=== PATIENT | male | born 1985 | race Caucasian/White ===

== ENCOUNTER 2019-02-08 14:52 | Emergency (ER) | payer SELFPAY ==
[~2019-02-08] VITALS: Ht 170.2 cm; Wt 89.0 kg
[2019-02-08 14:56] VITALS: Ht 170.2 cm; Wt 89.0 kg
[2019-02-08] MEDS ORDERED: KETOROLAC 30 MG INJ IV STA (17:20)
[2019-02-08] MEDS ORDERED: IBUP-1542 PO (17:25)
--- NOTE | 2019-02-08 17:25 | ERD ---
ER Documentation Chief Complaint Chief Complaint LANCE X 1 WEEK HPI 33-year-old male presents complaint of headache for the past week. States that the headache is located in the left side of his head. Patient states that his mother used to get migraines. Patient states that the headache came on gradually over the course of a couple hours and is intermittent in intensity. Denies sudden onset, worse headache of life, fever, neck stiffness, rash, headache getting worse with change in position, headache initiated by exertion, LANCE worse in the morning, LANCE waking up patient at night, new neurological deficits, numbness, weakness, vision problems, tenderness to palpation over temporal area, history of trauma, or possibility of CO2 poisoning. Denies past medical history. Denies allergies. Denies surgeries. Denies alcohol, tobacco, drug use. Up to date on vaccines. ROS All systems reviewed and are negative except as per history of present illness. PMhx/Soc Hx Alcohol Use: No Hx Substance Use: No Hx Tobacco Use: No Smoking Status: Never smoker Physical Exam Vitals Vital Signs Date Temp Pulse Resp B/P (MAP) Pulse Ox O2 O2 Flow FiO2 Time Delivery Rate 02/08/19 98.1 68 18 131/68 99 14:56 (89) Physical Exam Const: No acute distress Head: Atraumatic Eyes: Normal Conjunctiva. PERRLA ENT: Normal External Ears, Nose and Mouth. Neck: Full range of motion. No meningismus. Resp: Clear to auscultation bilaterally Cardio: Regular rate and rhythm, no murmurs Abd: Soft, non tender, non distended. Normal bowel sounds Skin: No petechiae or rashes Back: No midline or flank tenderness Ext: No cyanosis, or edema Neur: Awake and alert Psych: Normal Mood and Affect Neuro: M/S: Alert and oriented Face: EOMI, face and pharynx with normal sensation and function Motor: Normal strength throughout Sensation: Normal sensation throughout Speech: Normal Cerebel: Normal coordination Normal gait Normal finger to nose DTR: 2+ and symmetric upper/lower extremities Results 24 hrs Current Medications Medications Dose Sig/Micaela Start Time Status Last (Trade) Ordered Route PRN Stop Time Admin Dose Reason Admin Ketorolac 30 mg ONCE STAT 02/08/19 DC Tromethamine IV 17:20 (Toradol) 02/08/19 17:21 Procedures/MDM MDM: Patient's headache is consistent with migraine. Patient was given Toradol IV and headache was resolved. Patient does not have any red flags for headache and does not fit for CT at this time. I have low suspicion for intracranial hemorrhage, elevated intracranial pressure, intracranial mass, aneurysm, meningitis, malignant hypertension, giant cell arteritis, carotid dissection, intracranial abscess, cerebral venous thrombosis, CO2 poisoning, or other emergent causes of headache based on patients history and exam. At this time, patient is stable for discharge and outpatient management. I have instructed the patient to follow-up with his/her primary care physician in 1-2 days. I have discussed with the patient the possibility of needing to see a specialist for further workup and imaging studies if symptoms persist. I have instructed the patient to promptly return to the ER for any new or worsening symptoms including but not limited to increased pain, fever, nausea, vomiting, weakness or LOC. The patient and/or family expressed understanding of and agreement with this plan. All questions were answered. Home care instructions were provided. Communication with patient both during the exam and instructions for discharge were performed with using a emergency vehicle operator . Patient gave verbal confirmation to the practitioner, through the emergency vehicle operator, that they understood everythign that was being said to them. DISCLAIMER: Inadvertent spelling and grammatical errors are likely due to EHR/dictation software use and do not reflect on the overall quality of patient care. Also, please note that the electronic time recorded on this note does not necessarily reflect the actual time of the patient encounter. Departure Diagnosis: Primary Impression: Headache Headache type: unspecified Headache chronicity pattern: acute headache Intractability: not intractable Qualified Codes: R51 - Headache Condition: Stable VEDA LESTER Feb 08, 2019 17:25
[2019-02-08 19:03] VITALS: BP 134/76; PULSE 58; RESP 18
== END 2019-02-08 19:04 | disposition home or self-care (01) ==
LOC: FTE 14:52
DX: R51 Headache (principal)
CPT/HCPCS: 96374; 99284; J1885

== ENCOUNTER 2019-03-01 10:34 | Emergency (ER) | payer MEDICAID ==
[~2019-03-01] VITALS: Wt 70.5 kg
[~2019-03-01 10:34] MED LIST: IBUP-1542 PO
[2019-03-01] MEDS ORDERED: SOD CHLORIDE 0.9% 1,000 ML IV STA (11:24)
[2019-03-01] MEDS ORDERED: KETOROLAC 30 MG INJ IV STA (11:24)
[2019-03-01] MEDS ORDERED: ONDA4TAB14 PO (13:15)
[2019-03-01] MEDS ORDERED: BUTA1CAP38 PO (13:15)
--- NOTE | 2019-03-01 13:29 | ERD ---
ER Documentation Chief Complaint Chief Complaint bartlett, nausea, dizziness x1 wk, neg neuro def HPI 33-year-old male presenting with headache nausea dizziness x1 week. Patient states that this comes and goes. Is located over the left side denies any visual changes. He has no vomiting. He denies any chest pain or shortness of breath. He has not pain over the left temporal lobe. Denies medical problems. NKDA. Surgical denies. Up-to-date on vaccinations ROS All systems reviewed and are negative except as per history of present illness. Medications Home Meds Active Scripts Ondansetron (Ondansetron Odt) 4 Mg Tab.rapdis, 4 MG PO Q6H PRN for NAUSEA AND/OR VOMITING, #10 TAB Prov:RANCHO GUERRA PA-C 03/01/19 Ztmogrfjox-Cfuvttpstgwgk-Rqinwkxn* (Fioricet*) 50-300-40 Mg Capsule, 1 CAP PO Q4H PRN for Daily, #30 CAP Prov:RANCHO GUERRA PA-C 03/01/19 Ibuprofen* (Motrin*) 600 Mg Tab, 600 MG PO Q6, #30 TAB Prov:VEDA LESTER 02/08/19 Allergies Allergies: Coded Allergies: No Known Allergy (Unverified , 03/01/19) PMhx/Soc Medical and Surgical Hx: pt denies Medical Hx, pt denies Surgical Hx Hx Alcohol Use: No Hx Substance Use: No Hx Tobacco Use: No Smoking Status: Never smoker FmHx Family History: No diabetes, No coronary disease, No other Physical Exam Vitals Vital Signs Date Temp Pulse Resp B/P (MAP) Pulse Ox O2 O2 Flow FiO2 Time Delivery Rate 03/01/19 Nasal 2 11:55 Cannula 03/01/19 97.5 81 20 121/62 99 10:35 (81) Physical Exam GENERAL: The patient is well-appearing, well-nourished, in no acute distress HEENT: Atraumatic. Conjunctivae are pink. Pupils equal, round, and reactive to light. There is no scleral icterus. Tympanic membranes clear bilaterally. Oropharynx clear. No nystagmus or photophobia. CHEST: Clear to auscultation bilaterally. There are no rales, wheezes or rhonchi. HEART: Regular rate and rhythm. No murmurs, clicks, rubs or gallops. No S3 or S4. NEUROLOGIC: Alert and oriented. Cranial nerves II through XII intact. Motor strength in all 4 extremities with 5 out of 5 strength. Sensation grossly intac t. Normal speech and gait. SKIN: There is no apparent rash or petechiae. The skin is warm and dry. Result Diagram: 03/01/19 1138 03/01/19 1138 Results 24 hrs Laboratory Tests Test 03/01/19 11:38 White Blood Count 5.0 10^3/ul Red Blood Count 5.03 10^6/ul Hemoglobin 14.5 g/dl Hematocrit 43.4 % Mean Corpuscular Volume 86.3 fl Mean Corpuscular Hemoglobin 28.8 pg Mean Corpuscular Hemoglobin Concent 33.4 g/dl Red Cell Distribution Width 12.4 % Platelet Count 231 10^3/UL Mean Platelet Volume 11.1 fl Immature Granulocytes % 0.400 % Neutrophils % 52.2 % Lymphocytes % 36.1 % Monocytes % 8.5 % Eosinophils % 2.0 % Basophils % 0.8 % Nucleated Red Blood Cells % 0.0 /100WBC Immature Granulocytes # 0.020 10^3/ul Neutrophils # 2.6 10^3/ul Lymphocytes # 1.8 10^3/ul Monocytes # 0.4 10^3/ul Eosinophils # 0.1 10^3/ul Basophils # 0.0 10^3/ul Nucleated Red Blood Cells # 0.0 10^3/ul Erythrocyte Sedimentation Rate 5 mm/Hr Urine Color YELLOW Urine Clarity CLEAR Urine pH 7.0 Urine Specific [place] 1.017 Urine Ketones NEGATIVE mg/dL Urine Nitrite NEGATIVE mg/dL Urine Bilirubin NEGATIVE mg/dL Urine Urobilinogen NEGATIVE mg/dL Urine Leukocyte Esterase NEGATIVE Leia/ul Urine Hemoglobin NEGATIVE mg/dL Urine Glucose NEGATIVE mg/dL Urine Total Protein NEGATIVE mg/dl Sodium Level 142 mmol/L Potassium Level 4.5 mmol/L Chloride Level 105 mmol/L Carbon Dioxide Level 31 mmol/L Anion Gap 6 Blood Urea Nitrogen 12 mg/dl Creatinine 0.93 mg/dl Est Glomerular Filtrat Rate mL/min > 60 mL/min Glucose Level 91 mg/dl Calcium Level 9.6 mg/dl Total Bilirubin 0.6 mg/dl Direct Bilirubin 0.00 mg/dl Indirect Bilirubin 0.6 mg/dl Aspartate Amino Transf (AST/SGOT) 59 IU/L Alanine Aminotransferase (ALT/SGPT) 109 IU/L Alkaline Phosphatase 73 IU/L Total Protein 7.9 g/dl Albumin 4.3 g/dl Globulin 3.60 g/dl Albumin/Globulin Ratio 1.19 Lipase 71 U/L Current Medications Medications Dose Sig/Micaela Start Time Status Last (Trade) Ordered Route PRN Stop Time Admin Dose Reason Admin Sodium 1,000 ml @ Q1H STAT 03/01/19 DC 03/01/19 Chloride 1,000 mls/hr IV 11:24 11:40 03/01/19 12:23 Ketorolac 30 mg ONCE STAT 03/01/19 DC 03/01/19 Tromethamine IV 11:24 11:39 (Toradol) 03/01/19 11:25 Procedures/MDM MDM: 1 L normal saline given ED. Zofran Toradol given in ED. ESR 5 within normal ranges. Oxygen given in ER. Upon reevaluation patient's headache had improved. MDM: 33-year-old male presenting with headache. I have low suspicion for intracranial hemorrhage or neuro deficit. I have low suspicion for temporal arteritis. I have low suspicion for infectious process. I have low suspicion for visual deficit. Patient exam and vitals are within normal limits. Patient received relief while in the ER. Patient will be discharged with supportive medications. I do not feel further blood work or imaging is indicated at today' s visit. Patient is told if symptoms change or worsen to return immediately to the ER. All questions answered at discharge Departure Diagnosis: Primary Impression: Headache Condition: Stable Patient Instructions: Self-Care for Headaches Referrals: [facility] YOU HAVE RECEIVED A MEDICAL SCREENING EXAM AND THE RESULTS INDICATE THAT YOU DO NOT HAVE A CONDITION THAT REQUIRES URGENT TREATMENT IN THE EMERGENCY DEPARTMENT. FURTHER EVALUATION AND TREATMENT OF YOUR CONDITION CAN WAIT UNTIL YOU ARE SEEN IN YOUR DOCTORS OFFICE WITHIN THE NEXT 1-2 DAYS. IT IS YOUR RESPONSIBILITY TO MAKE AN APPOINTMENT FOR FOLOW-UP CARE. IF YOU HAVE A PRIMARY DOCTOR --you should call your primary doctor and schedule an appointment IF YOU DO NOT HAVE A PRIMARY DOCTOR YOU CAN CALL OUR PHYSICIAN REFERRAL HOTLINE AT IF YOU CAN NOT AFFORD TO SEE A PHYSICIAN YOU CAN CHOSE FROM THE FOLLOWING [facility] [address] [facility]. [facility] [address] [facility] [facility] [address] [facility] [address] [facility] [address] [facility] [facility] [address] Additional Instructions: FOLLOW UP WITH YOUR PRIMARY CARE PHYSICIAN TOMORROW.Return to this facility if you are not improving as expected. RANCHO GUERRA PA-C Mar 01, 2019 13:29
[2019-03-01 13:51] VITALS: BP 128/62; PULSE 72; RESP 17
== END 2019-03-01 13:51 | disposition home or self-care (01) ==
LOC: FTE 10:34
DX: R51 Headache (principal)
CPT/HCPCS: 36415; 80053; 81003; 83690; 85025; 85651; 96374; J1885; J7030; Z7502